=== PATIENT | male | born 1985 | race Hispanic/Latino ===

== ENCOUNTER 2019-01-28 14:34 | Inpatient (IN) | payer OTHER, SELFPAY ==
[~2019-01-28] VITALS: Ht 170.2 cm; Wt 137.0 kg
[2019-01-28 15:27] LABS: BASOPHILS % (AUTO) 0.4 % (0.0-5.0); EOSINOPHILS % (AUTO) 2.5 % (0.0-8.0); HEMATOCRIT 43.8 % (42-54); LYMPHOCYTES % (AUTO) 19.9 % (21.0-51.0); MEAN CORPUSCULAR HEMOGLOBIN 28.6 pg (27.0-33.0); MEAN CORPUSCULAR HGB CONC 33.3 g/dL (32.0-36.0); MEAN CORPUSCULAR VOLUME 85.7 fL (79-99); MONOCYTES % (AUTO) 8.6 % (3.0-13.0); NEUTROPHILS % (AUTO) 68.1 % (40.0-77.0); PLATELET COUNT (AUTO) 344 K/uL (130-400); RED BLOOD CELL COUNT(AUTO) 5.11 MIL/uL (4.50-6.20); WHITE BLOOD COUNT (AUTO) 17.1 K/uL (4.8-10.8)
[2019-01-28 15:28] LABS: APPEARANCE,URINE Clear (CLEAR); BILIRUBIN,URINE Negative (NEGATIVE); COLOR,URINE Yellow (YELLOW); GLUCOSE, URINE (UA) Negative (NEGATIVE); KETONES,URINE Negative (NEGATIVE); LEUKOCYTE ESTERASE ,URINE Negative (NEGATIVE); NITRATE,URINE Negative (NEGATIVE); OCCULT BLOOD,URINE Negative (NEGATIVE); PROTEIN,URINE POS 1+ mg/dL (NEGATIVE)
[2019-01-28] MEDS ORDERED: ONDANSETRON HCL 4 MG/2 ML VIAL ONE ×2 (15:31→19:43)
[2019-01-28] MEDS ORDERED: MORPHINE SULFATE 4 MG/1ML SYG ONE (15:31)
[2019-01-28 15:40] LABS: CREATININE 0.9 mg/dL (0.5-1.5); POTASSIUM 3.7 mmol/L (3.5-5.1)
[2019-01-28 15:42] LABS: RBC,URINE 0-1 /HPF (0-1); WBC,URINE 0-1 /HPF (0-1)
[2019-01-28 15:44] LABS: BACTERIA,URINE Rare /HPF (None Seen); MUCUS,URINE Rare LPF (None Seen); SQUAMOUS EPITHELIAL CELL,UR Rare /HPF (0-2); YEAST,URINE BUDDING Rare /HPF (None Seen)
[2019-01-28 15:45] LABS: ALBUMIN 3.5 g/dL (3.5-5.0); BILIRUBIN,TOTAL 0.5 mg/dL (0.2-1.0); TOTAL PROTEIN, SERUM 8.2 g/dL (6.0-8.3)
[2019-01-28] MEDS ORDERED: IOHEXOL 350 MG/ML 100ML INFUS..BTL IV ONE (15:51)
[2019-01-28] MEDS ORDERED: METRONIDAZOLE 500MG/100ML BAG 100 ML ONE (16:45)
[2019-01-28] MEDS: CEFTRIAXONE SODIUM 1 GM IV SCH (18:30)
[2019-01-28] MEDS ORDERED: LEVOFLOXACIN 500 MG/D5W 100 ML 100 ML ONE (18:41)
[2019-01-28] MEDS ORDERED: CEFTRIAXONE SODIUM 1 GM ONE (19:43)
[2019-01-28] MEDS ORDERED: SODIUM CHLORIDE 0.9% 50 ML IV ONE (19:44)
[2019-01-28] MEDS ORDERED: FAMOTIDINE/PF 20 MG/2 ML VIAL IV ONE (19:44)
[2019-01-28 21:00] VITALS: BP 120/67
[2019-01-28] MEDS: FAMOTIDINE/PF 20 MG/2 ML VIAL IV SCH (21:00)
[2019-01-28] MEDS ORDERED: FAMOTIDINE/PF 20 MG/2 ML VIAL IV SCH (21:00)
[2019-01-28] MEDS ORDERED: SODIUM CHLORIDE 0.9% 1000ML 1,000 ML IV ONE (21:28)
[2019-01-28] MEDS: SODIUM CHLORIDE 0.9% 1000ML 1,000 ML IV SCH (21:58)
[2019-01-28] MEDS: MORPHINE SULFATE 2 MG/ML 1ML SYG IV PRN (22:29)
[2019-01-28 23:00] VITALS: BP 125/86
[2019-01-29] MEDS: METRONIDAZOLE 500MG/100ML BAG 100 ML IV SCH ×3 (01:30→18:07)
[2019-01-29 03:00] VITALS: BP 133/78
[2019-01-29] MEDS: MORPHINE SULFATE 2 MG/ML 1ML SYG IV PRN ×3 (05:41→19:36)
[2019-01-29 06:07] LABS: BASOPHILS % (AUTO) 0.5 % (0.0-5.0); EOSINOPHILS % (AUTO) 2.1 % (0.0-8.0); HEMATOCRIT 40.9 % (42-54); LYMPHOCYTES % (AUTO) 18.1 % (21.0-51.0); MEAN CORPUSCULAR HEMOGLOBIN 28.2 pg (27.0-33.0); MONOCYTES % (AUTO) 9.1 % (3.0-13.0); NEUTROPHILS % (AUTO) 69.4 % (40.0-77.0); PLATELET COUNT (AUTO) 321 K/uL (130-400); RED BLOOD CELL COUNT(AUTO) 4.65 MIL/uL (4.50-6.20); RED CELL DISTRIBUTION WIDTH 13.4 % (11.0-15.5); WHITE BLOOD COUNT (AUTO) 15.4 K/uL (4.8-10.8)
[2019-01-29 06:20] LABS: CREATININE 0.8 mg/dL (0.5-1.5); POTASSIUM 3.9 mmol/L (3.5-5.1)
[2019-01-29 07:59] VITALS: BP 127/73
--- NOTE | 2019-01-29 08:00 | NUR ---
PT AAO X 3 REVIEW PLAN OF CARE. NPO FOR NOW, HAS IVF. OF NS AT 75 CCHR TO HIS R A C. NOTED NO REDNESS . HAS BOWEL SOUNDS SOME PAIN OFF AND ON. CALL LIGHT INREACH
[2019-01-29] MEDS: FAMOTIDINE/PF 20 MG/2 ML VIAL IV SCH ×2 (09:13→21:04)
[2019-01-29 11:08] VITALS: BP 131/76
[2019-01-29] MEDS: ENOXAPARIN SODIUM 40 MG/0.4 ML SYRINGE SQ SCH (12:24)
[2019-01-29] MEDS: SODIUM CHLORIDE 0.9% 1000ML 1,000 ML IV SCH (12:24)
--- NOTE | 2019-01-29 15:05 | NUR ---
DCP CM met with pt discussed dc plans. Pt is independent prior to admission, lives at home with spouse and children. Denies any equipments/services. Feels safe to go back home, spouse able to assist with transportation and needs as necessary. Pt undocumented, selfpay, [facility] assisting, given community resources packet. DC plan to home once stable. CM to cont to follow up. Addendum: 01/30/19 at 1506 by CON [place] LVN CM Amended: Links added.
[2019-01-29 16:14] VITALS: BP 132/78
--- NOTE | 2019-01-29 18:00 | NUR ---
DR. HOLCOMB HERE ,AND REVIEW THE CT SCAN WITH PT. . CONT CARE, NO DIET YET. CALL LIGHT IN REACH
[2019-01-29] MEDS: CEFTRIAXONE SODIUM 1 GM IV SCH (18:07)
[2019-01-29 19:00] VITALS: BP 123/79
[2019-01-29] MEDS: ONDANSETRON HCL 4 MG/2 ML VIAL IV PRN (21:06)
[2019-01-30] VITALS (7 sets, daily range): BP systolic 115–141; BP diastolic 71–87
[2019-01-30] MEDS: METRONIDAZOLE 500MG/100ML BAG 100 ML IV SCH ×4 (00:44→23:18)
[2019-01-30] MEDS: SODIUM CHLORIDE 0.9% 1000ML 1,000 ML IV SCH ×2 (00:44→08:36)
[2019-01-30 05:39] LABS: BASOPHILS % (AUTO) 0.5 % (0.0-5.0); EOSINOPHILS % (AUTO) 3.5 % (0.0-8.0); HEMATOCRIT 40.2 % (42-54); LYMPHOCYTES % (AUTO) 20.7 % (21.0-51.0); MEAN CORPUSCULAR HEMOGLOBIN 28.8 pg (27.0-33.0); MEAN CORPUSCULAR HGB CONC 32.8 g/dL (32.0-36.0); MEAN CORPUSCULAR VOLUME 87.8 fL (79-99); MONOCYTES % (AUTO) 7.8 % (3.0-13.0); NEUTROPHILS % (AUTO) 66.8 % (40.0-77.0); PLATELET COUNT (AUTO) 328 K/uL (130-400); RED BLOOD CELL COUNT(AUTO) 4.58 MIL/uL (4.50-6.20); RED CELL DISTRIBUTION WIDTH 13.1 % (11.0-15.5)
[2019-01-30 06:04] LABS: CREATININE 0.7 mg/dL (0.5-1.5); MAGNESIUM 2.3 mg/dL (1.80-2.40); PHOSPHORUS 3.9 mg/dL (2.5-4.9); THYROID STIMULATING HORMONE 7.12 uIU/mL (0.36-3.74)
[2019-01-30 06:16] LABS: HEMOGLOBIN A1C 6.3 % (4.0-6.0)
[2019-01-30 06:19] LABS: CRP QUANTITATIVE 148.2 mg/L (0.00-9.0)
[2019-01-30 07:04] LABS: ERYTHROCYTE SEDIMENTATION RATE 55 MM/HR (0-15)
--- NOTE | 2019-01-30 08:00 | NUR ---
REVIEW PLAN OF CARE, WITH PT. CONT WITH PLAN OF CARE, CONT .NPO . STATUS , AND HAS IVF . CONT AT 75 CCHR TO HIS RAC, SITE NOTED NO REDNESS TO SITE, CALL LIGHT IN REACH . DOES HAVE BOWEL SOUND, AND CALL LIGHT IN REACH.
[2019-01-30] MEDS: FAMOTIDINE/PF 20 MG/2 ML VIAL IV SCH ×2 (08:35→20:01)
[2019-01-30] MEDS: ENOXAPARIN SODIUM 40 MG/0.4 ML SYRINGE SQ SCH (08:35)
[2019-01-30] MEDS: MORPHINE SULFATE 2 MG/ML 1ML SYG IV PRN (09:33)
--- NOTE | 2019-01-30 11:50 | NUR ---
DR. HOLCOMB HERE AND SPOKE WITH PT .OF REGARDING OF CARE , AND NPO STATUS , TO CONT,, PT IS AWARE, OF PLAN OF CARE, WITH DR. ROCA TO FOLLOW .
[2019-01-30] MEDS: CEFTRIAXONE SODIUM 1 GM IV SCH (18:13)
[2019-01-30] MEDS: ONDANSETRON HCL 4 MG/2 ML VIAL IV PRN (20:04)
[2019-01-31] MEDS: SODIUM CHLORIDE 0.9% 1000ML 1,000 ML IV SCH ×2 (02:28→18:11)
[2019-01-31 03:56] VITALS: BP 124/85
[2019-01-31 05:37] LABS: BASOPHILS % (AUTO) 0.5 % (0.0-5.0); EOSINOPHILS % (AUTO) 4.7 % (0.0-8.0); HEMATOCRIT 41.4 % (42-54); LYMPHOCYTES % (AUTO) 21.2 % (21.0-51.0); MEAN CORPUSCULAR HEMOGLOBIN 28.8 pg (27.0-33.0); MEAN CORPUSCULAR HGB CONC 33.3 g/dL (32.0-36.0); MEAN CORPUSCULAR VOLUME 86.4 fL (79-99); MONOCYTES % (AUTO) 8.1 % (3.0-13.0); NEUTROPHILS % (AUTO) 64.9 % (40.0-77.0); PLATELET COUNT (AUTO) 381 K/uL (130-400); RED BLOOD CELL COUNT(AUTO) 4.79 MIL/uL (4.50-6.20); RED CELL DISTRIBUTION WIDTH 12.7 % (11.0-15.5); WHITE BLOOD COUNT (AUTO) 11.9 K/uL (4.8-10.8)
[2019-01-31 06:00] LABS: ALBUMIN 3.1 g/dL (3.5-5.0); CREATININE 0.8 mg/dL (0.5-1.5); CRP QUANTITATIVE 120.1 mg/L (0.00-9.0); POTASSIUM 3.7 mmol/L (3.5-5.1)
[2019-01-31] MEDS: LEVOTHYROXINE 100 MCG VIAL IV SCH (06:22)
[2019-01-31 06:46] LABS: ERYTHROCYTE SEDIMENTATION RATE 45 MM/HR (0-15)
[2019-01-31 07:00] VITALS: BP 137/87
[2019-01-31] MEDS: METRONIDAZOLE 500MG/100ML BAG 100 ML IV SCH ×2 (09:30→18:11)
[2019-01-31] MEDS: FAMOTIDINE/PF 20 MG/2 ML VIAL IV SCH ×2 (09:30→19:56)
[2019-01-31] MEDS: ENOXAPARIN SODIUM 40 MG/0.4 ML SYRINGE SQ SCH (09:31)
[2019-01-31 11:00] VITALS: BP 127/83
--- NOTE | 2019-01-31 15:28 | NUR ---
Weight loss Diet Education: Spoke to patient about benefits of losing weight. Pt encouraged to start eating 3meals a day and incorporate physical activity for improved health outcomes. Pt verbalized understanding. Please consult SHAJI As nutritional concerns arise. Addendum: 01/31/19 at [address] RD Amended: Links added.
--- NOTE | 2019-01-31 15:38 | NUR ---
Nutrition intervention: Nutrition notification for malnutrition consult, and weight loss recommendation. Pt admitted with acute diverticulitis, currently BMI 47.3, IBW% 204%. A1C 6.3. Pt at risk for malnutrition related to obesity. Spoke to pt about benefits of weight loss and dietary lifestyle changes for improved health. Pt verbalized understanding. Recommendation: When medically feasible, advance diet therapy to CCD 75gm, Low residue as tolerated- begin with clear liquid diet 75gmCCD. Monitor diet advancement. Consult RD as nutrition concerns arise. Addendum: 01/31/19 at [address] RD Amended: Links added.
[2019-01-31 16:00] VITALS: BP 107/62
[2019-01-31] MEDS: CEFTRIAXONE SODIUM 1 GM IV SCH (18:11)
[2019-01-31 19:00] VITALS: BP 138/69
[2019-02-01] VITALS (7 sets, daily range): BP systolic 114–138; BP diastolic 50–91
[2019-02-01] MEDS: METRONIDAZOLE 500MG/100ML BAG 100 ML IV SCH ×3 (00:27→18:00)
[2019-02-01] MEDS: SODIUM CHLORIDE 0.9% 1000ML 1,000 ML IV SCH (05:22)
[2019-02-01 05:23] LABS: HEMATOCRIT 42.6 % (42-54); MEAN CORPUSCULAR HEMOGLOBIN 29.1 pg (27.0-33.0); MEAN CORPUSCULAR HGB CONC 33.8 g/dL (32.0-36.0); MEAN CORPUSCULAR VOLUME 86.2 fL (79-99); PLATELET COUNT (AUTO) 408 K/uL (130-400); RED BLOOD CELL COUNT(AUTO) 4.94 MIL/uL (4.50-6.20); RED CELL DISTRIBUTION WIDTH 12.4 % (11.0-15.5); WHITE BLOOD COUNT (AUTO) 11.2 K/uL (4.8-10.8)
[2019-02-01 05:44] LABS: CREATININE 0.9 mg/dL (0.5-1.5); CRP QUANTITATIVE 76.3 mg/L (0.00-9.0); POTASSIUM 3.8 mmol/L (3.5-5.1)
[2019-02-01] MEDS: LEVOTHYROXINE 100 MCG VIAL IV SCH (05:57)
[2019-02-01 07:11] LABS: ERYTHROCYTE SEDIMENTATION RATE 70 MM/HR (0-15)
[2019-02-01] MEDS: LEVOFLOXACIN 500 MG/D5W 100 ML 100 ML IV SCH (08:18)
[2019-02-01] MEDS: FAMOTIDINE/PF 20 MG/2 ML VIAL IV SCH ×2 (08:18→20:30)
[2019-02-01] MEDS: ENOXAPARIN SODIUM 40 MG/0.4 ML SYRINGE SQ SCH (08:18)
[2019-02-02] MEDS: METRONIDAZOLE 500MG/100ML BAG 100 ML IV SCH ×2 (02:38→07:53)
[2019-02-02 03:00] VITALS: BP 130/84
[2019-02-02] MEDS: LEVOTHYROXINE 100 MCG VIAL IV SCH (06:46)
[2019-02-02] MEDS: LEVOFLOXACIN 500 MG/D5W 100 ML 100 ML IV SCH (07:53)
[2019-02-02] MEDS: FAMOTIDINE/PF 20 MG/2 ML VIAL IV SCH (07:53)
[2019-02-02] MEDS: ENOXAPARIN SODIUM 40 MG/0.4 ML SYRINGE SQ SCH (07:53)
[2019-02-02 08:15] VITALS: BP 113/59
[2019-02-02 11:00] VITALS: BP 136/78
[2019-02-02] MEDS ORDERED: LEVO500T89 PO (16:22)
[2019-02-02] MEDS ORDERED: METR-172 PO (16:22)
[2019-02-02 16:30] VITALS: BP 130/80
[2019-02-02] MEDS ORDERED: LEVO50TA4 PO (16:31)
== END 2019-02-02 17:00 | disposition home or self-care (01) | DRG 392 ==
LOC: EDH 14:34 → EDHIP 14:35 → 3BH 19:31
PROVIDERS: ADMIT Internal Medicine; ATTEND Internal Medicine
DX: K57.92 Diverticulitis of intestine, part unspecified, without perforation or abscess without bleeding (principal); Z68.42 Body mass index [BMI] 45.0-49.9, adult; E66.01 Morbid (severe) obesity due to excess calories; E86.1 Hypovolemia; R73.03 Prediabetes; E03.9 Hypothyroidism, unspecified; M47.815 Spondylosis without myelopathy or radiculopathy, thoracolumbar region
CPT/HCPCS: 36415; 71260; 74177; 80048; 80053; 81001; 82040; 83036; 83690; 83735; 84100; 84145; 84443; 85025; 85027; 85651; 86140; 93005; G0378; J0696; J1650; J1956; J2270; J2405; J3490; J7030; Q9967

== ENCOUNTER 2022-01-24 17:32 | Emergency (ER) | payer OTHER, SELFPAY ==
[~2022-01-24] VITALS: Ht 170.2 cm; Wt 145.1 kg
[~2022-01-24 17:32] MED LIST: LEVO-70 PO; LEVO50TA4 PO; METR-172 PO
[2022-01-24 18:07] LABS: BASOPHILS % (AUTO) 0.3 % (0.0-5.0); EOSINOPHILS % (AUTO) 2.8 % (0.0-8.0); HEMATOCRIT 42.3 % (42-54); LYMPHOCYTES % (AUTO) 21.1 % (21.0-51.0); MEAN CORPUSCULAR HEMOGLOBIN 28.5 pg (27.0-33.0); MEAN CORPUSCULAR HGB CONC 33.1 g/dL (32.0-36.0); MONOCYTES % (AUTO) 12.6 % (3.0-13.0); PLATELET COUNT (AUTO) 268 K/uL (130-400); RED BLOOD CELL COUNT(AUTO) 4.92 MIL/uL (4.50-6.20); RED CELL DISTRIBUTION WIDTH 12.5 % (11.0-15.5); WHITE BLOOD COUNT (AUTO) 6.1 K/uL (4.8-10.8)
[2022-01-24 18:28] LABS: CREATININE 0.8 mg/dL (0.5-1.5); POTASSIUM 3.5 mmol/L (3.5-5.1)
[2022-01-24] MEDS ORDERED: 0.9%NACL 1000ML 1,000 ML IV ONE (18:30)
[2022-01-24] MEDS ORDERED: ONDANSETRON 4MG INJ IVP ONE (18:30)
[2022-01-24] MEDS ORDERED: KETOROLAC 15MG/ML VIAL (15MG/ML) IV ONE (18:30)
[2022-01-24 18:33] LABS: ALBUMIN 3.2 g/dL (3.5-5.0); TOTAL PROTEIN, SERUM 7.7 g/dL (6.0-8.3)
[2022-01-24 18:52] LABS: APPEARANCE,URINE CLEAR (CLEAR); BILIRUBIN,URINE NEGATIVE (NEGATIVE); COLOR,URINE YELLOW (YELLOW); GLUCOSE, URINE (UA) NEGATIVE (NEGATIVE); KETONES,URINE NEGATIVE (NEGATIVE); LEUKOCYTE ESTERASE ,URINE 25 Leu/uL (NEGATIVE); NITRATE,URINE NEGATIVE (NEGATIVE); OCCULT BLOOD,URINE NEGATIVE (NEGATIVE); PROTEIN,URINE 30 mg/dL (NEGATIVE); UROBILINOGEN,URINE 0.2 mg/dL (0.2-1.0)
[2022-01-24 19:14] LABS: BACTERIA,URINE RARE /HPF (None Seen); MUCUS,URINE RARE LPF (None Seen); SQUAMOUS EPITHELIAL CELL,UR RARE /HPF (0-2)
[2022-01-24] MEDS ORDERED: ACET-66 PO (19:38)
[2022-01-24] MEDS ORDERED: ONDA4TAB10 PO (19:38)
[2022-01-24 19:54] VITALS: BP 130/76
== END 2022-01-24 19:56 | disposition home or self-care (01) ==
LOC: EDH 17:32
DX: J10.1 Influenza due to other identified influenza virus with other respiratory manifestations (principal); K62.5 Hemorrhage of anus and rectum; Z20.822 Contact with and (suspected) exposure to COVID-19; Z79.899 Other long term (current) drug therapy; Z98.890 Other specified postprocedural states
CPT/HCPCS: 99284; 96374; 87635; 96361; 96375; 82270; 80053; 85025; 87088; 87804 ×2; 81001; 36415; 93005; C9803; J7030; J2405; J1885